=== PATIENT | male | born 1950 | race Caucasian/White ===

== ENCOUNTER → 2018-07-04 | Day surgery (SDC) | payer MEDICARE ==
[~2018-07-04] VITALS: Ht 185.4 cm; Wt 114.3 kg
[~2018-07-04] MED LIST: BYDUREON2 MG SQ; FENOFIBRIC ACID35 MG PO; GLIPIZIDE5 MG PO; LIDOCAINE 1% W/EPINEPHRINE 20 ML VIAL ONE; LIDOCAINE HCL 2% LOCAL 20 ML VIAL ONE; LYRICA50 MG PO; METFORMIN HCL500 M2 PO; METOPROLOL SUC100 MG PEG; TRIBENZOR 40-11 EAC1 PO; VYTORIN 10-401 EACH PO; [UNRECOGNIZED DRUG - OTHER] PO; [UNRECOGNIZED DRUG - OTHER] PO; invokana PO
[2018-07-04 09:20] VITALS: BP 130/73
--- NOTE | 2018-07-05 20:39 | Operative Report ---
DATE OF PROCEDURE: July 04, 2018 INDICATIONS: Atrial fibrillation with ongoing palpitations. PROCEDURES PERFORMED: Insertable loop recorder. Left anterior chest wall was anesthetized using subcutaneous lidocaine. A Directr LINQ, serial number [id number] was inserted without complication. Skin was approximated using Dermabond. Patient discharged home the same day. Job#: [id number]
== END | disposition home or self-care (01) ==
LOC: CATH LAB 07:14
PROVIDERS: ATTEND Internal Medicine Interventional Cardiology
DX: I48.91 Unspecified atrial fibrillation (principal); I10 Essential (primary) hypertension; E78.00 Pure hypercholesterolemia, unspecified; E11.8 Type 2 diabetes mellitus with unspecified complications; Z79.82 Long term (current) use of aspirin; Z79.02 Long term (current) use of antithrombotics/antiplatelets; Z79.84 Long term (current) use of oral hypoglycemic drugs; Z68.33 Body mass index [BMI] 33.0-33.9, adult; Z82.49 Family history of ischemic heart disease and other diseases of the circulatory system
CPT/HCPCS: 33282; C1764; J2001

== ENCOUNTER 2023-02-23 13:09 | Observation (INO) | payer MEDICARE ==
[~2023-02-23] VITALS: Ht 185.4 cm; Wt 100.2 kg
[~2023-02-23 13:09] MED LIST changes: -LIDOCAINE 1% W/EPINEPHRINE 20 ML VIAL ONE; -LIDOCAINE HCL 2% LOCAL 20 ML VIAL ONE
[2023-02-23] MEDS ORDERED: SODIUM CHLORIDE 0.9% 1000ML 1,000 ML IV STA (13:48)
[2023-02-23 14:31] LABS: BASOPHILS % 0.4 % (0.0-1.0); EOSINOPHILS # (AUTO) 0.1 (0.0-0.4); EOSINOPHILS % 1.3 % (0.0-6.0); HEMATOCRIT 42.1 % (38.2-49.6); HEMOGLOBIN 14.6 g/dL (14.0-18.0); LYMPHOCYTES # (AUTO) 1.1 (1.0-3.2); LYMPHOCYTES % 16.1 % (18.0-39.1); MEAN CORPUSCULAR HEMOGLOBIN 33.9 pg (28-32); MEAN CORPUSCULAR HGB CONC 34.7 g/dL (31-35); MEAN CORPUSCULAR VOLUME 97.7 fL (81-99); MONOCYTES # (AUTO) 0.5 (0.2-0.8); MONOCYTES % 6.5 % (4.4-11.3); NEUTROPHILS # (AUTO) 5.3 (2.1-6.9); NEUTROPHILS % 74.8 % (38.7-80.0); PLATELET COUNT 186 x10e3/uL (140-360); RED BLOOD COUNT 4.31 x10e6/uL (4.3-5.7); RED CELL DISTRIBUTION WIDTH 13.1 % (11.7-14.4)
[2023-02-23 14:39] LABS: INR 1.1; PROTHROMBIN TIME 14.7 seconds (11.9-14.5)
[2023-02-23 14:40] LABS: PARTIAL THROMBOPLASTIN TIME 36.2 seconds (23.8-35.5)
[2023-02-23 14:48] LABS: ALBUMIN/GLOBULIN RATIO 1.2 (0.8-2.0); ANION GAP 21.5 mmol/L (8-16); CALCIUM 9.4 mg/dL (8.4-10.2); CREATININE, SERUM 1.34 mg/dL (0.72-1.25); MAGNESIUM 1.6 MG/DL (1.3-2.1); POTASSIUM 3.5 mmol/L (3.5-5.1)
[2023-02-23 14:54] LABS: CREATINE KINASE MB 3.7 ng/mL (0-5.0)
[2023-02-23] MEDS ORDERED: SODIUM CHLORIDE 0.9% 1000ML 1,000 ML IV ONE (15:00)
[2023-02-23 16:01] LABS: CLARITY,URINE CLEAR (CLEAR); COLOR,URINE YELLOW (YELLOW); KETONES,URINE TRACE (NEGATIVE); LEUKOCYTE ESTERASE ,URINE NEGATIVE (NEGATIVE); NITRITE,URINE NEGATIVE (NEGATIVE); PROTEIN,URINE DIPSTICK NEGATIVE (NEGATIVE); URINE UROBILINOGEN 0.2 mg/dL (0.2 - 1)
[2023-02-23 16:11] LABS: BACTERIA,URINE RARE /HPF
[2023-02-23] MEDS ORDERED: POLYETHYLENE GLYCOL 3350 17 GM PACK PO PRN (21:00)
[2023-02-23] MEDS ORDERED: HYDRALAZINE HCL 20 MG/ML VIAL IV PRN (21:00)
[2023-02-23] MEDS ORDERED: ACETAMINOPHEN 325 MG TAB PO PRN (21:00)
[2023-02-23] MEDS ORDERED: ONDANSETRON HCL INJ 2MG/ML 2ML 2 MG/ML VIAL IV PRN (21:00)
[2023-02-23 21:29] VITALS: BP 100/61; PULSE 94; RESP 20; TEMP 97.5; O2SAT 90
[2023-02-23 21:32] LABS: FREE T4 (FREE THYROXINE) 0.99 ng/dL (0.8-1.8); THYROID STIMULATING HORMONE 1.432 uIU/mL (0.350-4.940)
[2023-02-23 22:02] VITALS: BP 100/61; PULSE 94; RESP 20; TEMP 97.5; O2SAT 90
[2023-02-23 22:03] VITALS: BP 100/61; PULSE 94; RESP 20; TEMP 97.5; O2SAT 90
[2023-02-24 00:30] VITALS: BP 113/77; PULSE 97; RESP 20; TEMP 98.4; O2SAT 100
[2023-02-24 01:05] LABS: CREATINE KINASE MB 2.7 ng/mL (0-5.0)
[2023-02-24 04:54] LABS: BASOPHILS % 0.6 % (0.0-1.0); EOSINOPHILS # (AUTO) 0.1 (0.0-0.4); EOSINOPHILS % 0.9 % (0.0-6.0); HEMATOCRIT 39.1 % (38.2-49.6); HEMOGLOBIN 13.6 g/dL (14.0-18.0); LYMPHOCYTES # (AUTO) 1.5 (1.0-3.2); LYMPHOCYTES % 21.4 % (18.0-39.1); MEAN CORPUSCULAR HEMOGLOBIN 33.7 pg (28-32); MEAN CORPUSCULAR HGB CONC 34.8 g/dL (31-35); MONOCYTES # (AUTO) 0.7 (0.2-0.8); MONOCYTES % 9.6 % (4.4-11.3); NEUTROPHILS # (AUTO) 4.6 (2.1-6.9); NEUTROPHILS % 66.9 % (38.7-80.0); PLATELET COUNT 168 x10e3/uL (140-360); RED BLOOD COUNT 4.03 x10e6/uL (4.3-5.7); RED CELL DISTRIBUTION WIDTH 13.1 % (11.7-14.4)
[2023-02-24 05:24] LABS: ALBUMIN 3.6 g/dL (3.5-5.0); ALBUMIN/GLOBULIN RATIO 1.2 (0.8-2.0); ANION GAP 19.8 mmol/L (8-16); CALCIUM 9.4 mg/dL (8.4-10.2); CHOL/HDL RATIO 2.7 (3.9-4.7); CREATININE, SERUM 1.1 mg/dL (0.72-1.25); POTASSIUM 3.8 mmol/L (3.5-5.1)
[2023-02-24 05:39] LABS: MAGNESIUM 1.6 MG/DL (1.3-2.1); PHOSPHORUS 2.7 MG/DL (2.3-4.7)
[2023-02-24 06:14] LABS: CREATINE KINASE MB 2.2 ng/mL (0-5.0)
[2023-02-24] MEDS ORDERED: FAMOTIDINE 20 MG TAB PO SCH (07:30)
[2023-02-24 08:53] VITALS: BP 111/72; PULSE 94; RESP 18; TEMP 98.1; O2SAT 98
[2023-02-24] MEDS ORDERED: DOCUSATE SODIUM 100 MG CAP PO SCH (09:00)
[2023-02-24 11:35] VITALS: PULSE 94; RESP 16; O2SAT 98
[2023-02-24 12:55] VITALS: BP 116/71; PULSE 90; RESP 18; TEMP 98.1; O2SAT 98
[2023-02-24] MEDS ORDERED: ACTOS15 MG PO (12:58)
[2023-02-24] MEDS ORDERED: FLECAINIDE ACE100 MG PO (12:58)
[2023-02-24] MEDS ORDERED: BENICAR20 MG PO (12:58)
[2023-02-24] MEDS ORDERED: HYDROCHLOROTHIA50 MG (12:58)
[2023-02-24] MEDS ORDERED: FARXIGA5 MG PO (12:58)
[2023-02-24] MEDS ORDERED: VYTORIN 10-201 EACH PO (12:58)
== END 2023-02-24 14:15 | disposition home or self-care (01) ==
LOC: ER 13:48 → ERHOLD 15:05 → INTOOBSV 15:05 → MED/SURG2 20:27
PROVIDERS: ADMIT Internal Medicine; ATTEND Internal Medicine
DX: R55 Syncope and collapse (principal); I11.9 Hypertensive heart disease without heart failure; I25.10 Atherosclerotic heart disease of native coronary artery without angina pectoris; I48.20 Chronic atrial fibrillation, unspecified; Z79.01 Long term (current) use of anticoagulants; E11.9 Type 2 diabetes mellitus without complications; R00.1 Bradycardia, unspecified; I44.7 Left bundle-branch block, unspecified; E78.5 Hyperlipidemia, unspecified; Z79.899 Other long term (current) drug therapy; Z87.891 Personal history of nicotine dependence
CPT/HCPCS: 0223U; 36415 ×2; 70450; 71045; 72125; 80053 ×2; 80061; 81001; 82550 ×2; 82553 ×2; 82948; 83036; 83735 ×2; 83880; 84100; 84439; 84443; 84484 ×2; 85025 ×2; 85610; 85730; 87086; 93005; 93306; 93880; 94799 ×2; 97161; 99284; G0378 ×2; J7030